=== PATIENT | male | born 1960 | race African-American/Black ===

== ENCOUNTER 2019-11-03 15:32 | Inpatient (IN) ==
[2019-11-03] MEDS ORDERED: Insulin LISPRO 300 UNITS/3 ML VIAL SQ SCH (17:00)
[2019-11-03] MEDS ORDERED: Dextrose Gel 15 GM/37.5 ML TUBE PO PRN ×2 (18:07)
[2019-11-03] MEDS ORDERED: *HR* Dextrose 50 % in Water (Vial) 50 ML VIAL IVP PRN (18:07)
[2019-11-03] MEDS ORDERED: D5% in Water 1,000 ML IVC PRN (18:07)
[2019-11-03] MEDS: Insulin LISPRO 300 UNITS/3 ML VIAL SQ SCH (18:55)
[2019-11-03] MEDS ORDERED: Insulin DETEMIR 100 UNIT/ML per UNIT SQ ONE (21:00)
[2019-11-03] MEDS: carvediloL 6.25 MG TABLET PO SCH (21:58)
[2019-11-03] MEDS: Gabapentin 300 MG CAPSULE PO SCH (21:58)
[2019-11-03] MEDS: Acetaminophen 325 MG TABLET PO PRN (22:53)
[2019-11-04 06:18] LABS: Basophils # 0.1 K/mcL (0.0-0.2); Basophils % 0.7 %; Eosinophils # 0.4 K/mcL (0.0-0.6); Eosinophils % 4.8 %; Hematocrit 37.3 % (37.5-50.1); Hemoglobin 12.5 g/dL (12.9-16.9); Immature Granulocytes % 0.4 % (0-4); Lymphocytes # 2.2 K/mcL (0.6-4.6); Lymphocytes % 29.4 %; Mean Corpuscular HGB Conc 33.5 g/dL (31.6-35.5); Mean Corpuscular Hemoglobin 28.7 pg (28.0-33.3); Mean Corpuscular Volume 85.7 fL (83.0-100.0); Mean Platelet Volume 10.5 fL (9.4-12.4); Monocytes # 0.7 K/mcL (0.0-1.3); Monocytes % 8.9 %; Neutrophils # 4.2 K/mcL (1.6-8.9); Platelet Count 445 K/mcL (140-400); Red Blood Count 4.35 M/mcL (4.19-5.50); Red Cell Distribution Width 11.7 % (11.5-14.5); Segmented Neutrophils % 55.8 %; White Blood Count 7.5 K/mcL (4.3-11.1)
[2019-11-04 06:40] LABS: BUN/Creatinine Ratio 20 (6-26); Blood Urea Nitrogen 29 mg/dL (6-20); Calcium 8.9 mg/dL (8.6-10.3); Carbon Dioxide 28 mEq/L (23-29); Chloride 97 mEq/L (98-107); Glucose 463 mg/dL (70-105); Osmolality,Calculated 302 (280-300); Potassium 4.8 mEq/L (3.5-5.1); Sodium 133 mEq/L (136-145); eGFR For African Americans > 60 (> 60); eGFR For Non-African Americans 51 (> 60)
[2019-11-04] MEDS: lisinopriL 10 MG TABLET PO SCH (08:17)
[2019-11-04] MEDS: carvediloL 6.25 MG TABLET PO SCH ×2 (08:17→16:27)
[2019-11-04] MEDS: Gabapentin 300 MG CAPSULE PO SCH ×3 (08:17→20:51)
[2019-11-04] MEDS: Insulin LISPRO 300 UNITS/3 ML VIAL SQ SCH ×3 (08:21→16:32)
[2019-11-04] MEDS: Insulin DETEMIR 100 UNIT/ML X5UNITS SQ SCH ×2 (08:21→20:52)
[2019-11-04] MEDS ORDERED: Insulin LISPRO 300 UNITS/3 ML VIAL SQ ONE (09:35)
[2019-11-04] MEDS ORDERED: 0.9 % Sodium Chloride 1,000 ML ONE (13:39)
[2019-11-04] MEDS: 0.9 % Sodium Chloride 1,000 ML IVC SCH (16:26)
[2019-11-04] MEDS ORDERED: *HR* Enoxaparin 100 MG/ML SYRINGE SQ SCH (18:00)
[2019-11-04] MEDS: Acetaminophen 325 MG TABLET PO PRN (20:51)
[2019-11-05] MEDS: 0.9 % Sodium Chloride 1,000 ML IVC SCH ×3 (00:07→17:02)
[2019-11-05] MEDS: *HR* Enoxaparin 40 MG/0.4 ML SYRINGE SQ SCH (06:04)
[2019-11-05] MEDS: Acetaminophen 325 MG TABLET PO PRN ×2 (06:04→13:20)
[2019-11-05 06:32] LABS: BUN/Creatinine Ratio 21 (6-26); Blood Urea Nitrogen 27 mg/dL (6-20); Carbon Dioxide 27 mEq/L (23-29); Chloride 101 mEq/L (98-107); Glucose 243 mg/dL (70-105); Osmolality,Calculated 295 (280-300); Potassium 4.3 mEq/L (3.5-5.1); Sodium 136 mEq/L (136-145); eGFR For African Americans > 60 (> 60); eGFR For Non-African Americans 56 (> 60)
[2019-11-05] MEDS: Gabapentin 300 MG CAPSULE PO SCH ×3 (08:29→21:20)
[2019-11-05] MEDS: lisinopriL 10 MG TABLET PO SCH (08:29)
[2019-11-05] MEDS: carvediloL 6.25 MG TABLET PO SCH ×2 (08:29→17:02)
[2019-11-05] MEDS: Insulin LISPRO 300 UNITS/3 ML VIAL SQ SCH ×3 (08:30→17:03)
[2019-11-05] MEDS: Insulin DETEMIR 100 UNIT/ML X5UNITS SQ SCH ×2 (08:30→22:11)
[2019-11-05] MEDS: *HR* HYDROcodone/Acet 5/325 mg TABLET PO PRN ×3 (10:47→22:08)
[2019-11-06 05:34] LABS: BUN/Creatinine Ratio 19 (6-26); Blood Urea Nitrogen 28 mg/dL (6-20); Calcium 9.1 mg/dL (8.6-10.3); Carbon Dioxide 26 mEq/L (23-29); Chloride 100 mEq/L (98-107); Glucose 334 mg/dL (70-105); Osmolality,Calculated 301 (280-300); Potassium 4.4 mEq/L (3.5-5.1); Sodium 136 mEq/L (136-145); eGFR For African Americans > 60 (> 60); eGFR For Non-African Americans 50 (> 60)
[2019-11-06] MEDS: *HR* Enoxaparin 40 MG/0.4 ML SYRINGE SQ SCH (06:52)
[2019-11-06] MEDS: *HR* HYDROcodone/Acet 5/325 mg TABLET PO PRN ×3 (06:53→20:53)
[2019-11-06] MEDS: Insulin LISPRO 300 UNITS/3 ML VIAL SQ SCH ×4 (07:43→16:38)
[2019-11-06] MEDS: Gabapentin 300 MG CAPSULE PO SCH ×3 (09:19→20:53)
[2019-11-06] MEDS: carvediloL 6.25 MG TABLET PO SCH ×2 (09:20→16:18)
[2019-11-06] MEDS: lisinopriL 10 MG TABLET PO SCH (09:20)
[2019-11-06] MEDS: Insulin DETEMIR 100 UNIT/ML X5UNITS SQ SCH ×2 (09:21→20:52)
[2019-11-06] MEDS ORDERED: 0.9 % Sodium Chloride 1,000 ML IV ONE (13:39)
[2019-11-06] MEDS ORDERED: 0.9 % Sodium Chloride 1,000 ML ONE (13:41)
[2019-11-06 15:59] LABS: Amphetamine Screen,Urine Negative ng/mL (Cutoff=1000); Barbiturate Screen,Urine Negative ng/mL (Cutoff=200); Benzodiazepines Screen,Urine Negative ng/mL (Cutoff=200); Cannabinoid Screen,Urine Negative ng/mL (Cutoff = 50); Cocaine Screen,Urine Negative ng/mL (Cutoff= 300); Opiate Screen,Urine Positive ng/mL (Cutoff=300); Phencyclidine Screen,Urine Negative ng/mL (Cutoff=25)
[2019-11-06] MEDS: 0.9 % Sodium Chloride 1,000 ML IVC SCH (16:48)
[2019-11-06] MEDS: tiZANidine 4 MG TABLET PO PRN (20:53)
[2019-11-07] MEDS: 0.9 % Sodium Chloride 1,000 ML IVC SCH ×2 (01:54→09:52)
[2019-11-07] MEDS: Acetaminophen 325 MG TABLET PO PRN (01:58)
[2019-11-07] MEDS: *HR* HYDROcodone/Acet 5/325 mg TABLET PO PRN ×3 (03:17→17:58)
[2019-11-07] MEDS: *HR* Enoxaparin 40 MG/0.4 ML SYRINGE SQ SCH (06:01)
[2019-11-07] MEDS: Gabapentin 300 MG CAPSULE PO SCH ×3 (08:05→20:25)
[2019-11-07] MEDS: lisinopriL 10 MG TABLET PO SCH (08:06)
[2019-11-07] MEDS: carvediloL 6.25 MG TABLET PO SCH ×2 (08:06→16:37)
[2019-11-07] MEDS: Insulin LISPRO 300 UNITS/3 ML VIAL SQ SCH ×3 (08:07→16:38)
[2019-11-07] MEDS: Insulin DETEMIR 100 UNIT/ML X5UNITS SQ SCH ×2 (08:08→20:25)
[2019-11-07 10:45] LABS: BUN/Creatinine Ratio 17 (6-26); Blood Urea Nitrogen 23 mg/dL (6-20); Calcium 8.6 mg/dL (8.6-10.3); Carbon Dioxide 27 mEq/L (23-29); Chloride 99 mEq/L (98-107); Glucose 283 mg/dL (70-105); Osmolality,Calculated 296 (280-300); Sodium 136 mEq/L (136-145); eGFR For African Americans > 60 (> 60); eGFR For Non-African Americans 52 (> 60)
[2019-11-07] MEDS: tiZANidine 4 MG TABLET PO PRN (17:58)
[2019-11-08] MEDS: tiZANidine 4 MG TABLET PO PRN ×3 (00:08→17:09)
[2019-11-08] MEDS: *HR* HYDROcodone/Acet 5/325 mg TABLET PO PRN ×4 (00:08→20:03)
[2019-11-08] MEDS: *HR* Enoxaparin 40 MG/0.4 ML SYRINGE SQ SCH (05:59)
[2019-11-08] MEDS: carvediloL 6.25 MG TABLET PO SCH ×2 (08:37→17:08)
[2019-11-08] MEDS: Gabapentin 300 MG CAPSULE PO SCH ×3 (08:37→20:02)
[2019-11-08] MEDS: lisinopriL 10 MG TABLET PO SCH (08:37)
[2019-11-08] MEDS: Acetaminophen 325 MG TABLET PO PRN ×2 (08:56→17:08)
[2019-11-08] MEDS: Insulin LISPRO 300 UNITS/3 ML VIAL SQ SCH ×3 (08:57→16:53)
[2019-11-08] MEDS: Insulin DETEMIR 100 UNIT/ML X5UNITS SQ SCH ×2 (08:57→20:02)
[2019-11-08] MEDS: Sucralfate 1 GM TABLET PO SCH ×2 (17:08→21:22)
[2019-11-09] MEDS: *HR* HYDROcodone/Acet 5/325 mg TABLET PO PRN ×4 (01:27→23:59)
[2019-11-09] MEDS: *HR* Enoxaparin 40 MG/0.4 ML SYRINGE SQ SCH (06:52)
[2019-11-09] MEDS: carvediloL 6.25 MG TABLET PO SCH ×2 (08:01→16:01)
[2019-11-09] MEDS: Gabapentin 300 MG CAPSULE PO SCH ×3 (08:01→20:56)
[2019-11-09] MEDS: Sucralfate 1 GM TABLET PO SCH ×4 (08:01→20:56)
[2019-11-09] MEDS: lisinopriL 10 MG TABLET PO SCH (08:02)
[2019-11-09] MEDS: Insulin LISPRO 300 UNITS/3 ML VIAL SQ SCH ×3 (08:03→16:02)
[2019-11-09] MEDS: Insulin DETEMIR 100 UNIT/ML X5UNITS SQ SCH ×2 (09:27→20:56)
[2019-11-09] MEDS: Melatonin 3 MG TABLET PO PRN (20:56)
[2019-11-10] MEDS: *HR* Enoxaparin 40 MG/0.4 ML SYRINGE SQ SCH (06:12)
[2019-11-10] MEDS: *HR* HYDROcodone/Acet 5/325 mg TABLET PO PRN ×3 (06:12→18:25)
[2019-11-10] MEDS: tiZANidine 4 MG TABLET PO PRN (06:13)
[2019-11-10] MEDS: lisinopriL 10 MG TABLET PO SCH (08:23)
[2019-11-10] MEDS: carvediloL 6.25 MG TABLET PO SCH ×2 (08:23→16:33)
[2019-11-10] MEDS: Gabapentin 300 MG CAPSULE PO SCH ×3 (08:23→20:00)
[2019-11-10] MEDS: Sucralfate 1 GM TABLET PO SCH ×4 (08:23→20:07)
[2019-11-10] MEDS: Insulin DETEMIR 100 UNIT/ML X5UNITS SQ SCH ×2 (08:32→20:08)
[2019-11-10] MEDS: Insulin LISPRO 300 UNITS/3 ML VIAL SQ SCH ×3 (08:33→16:18)
[2019-11-10] MEDS: Ondansetron ODT 4 MG TAB.RAPDIS SL PRN (13:32)
[2019-11-10] MEDS ORDERED: 0.9 % Sodium Chloride 1,000 ML IVC ONE (18:41)
[2019-11-10] MEDS ORDERED: 0.9 % Sodium Chloride 1,000 ML ONE (18:44)
[2019-11-10] MEDS: Melatonin 3 MG TABLET PO PRN (20:19)
[2019-11-11] MEDS: *HR* Enoxaparin 40 MG/0.4 ML SYRINGE SQ SCH (06:18)
[2019-11-11] MEDS: *HR* HYDROcodone/Acet 5/325 mg TABLET PO PRN ×3 (06:19→21:34)
[2019-11-11] MEDS: lisinopriL 10 MG TABLET PO SCH (08:28)
[2019-11-11] MEDS: Sucralfate 1 GM TABLET PO SCH ×4 (08:29→21:34)
[2019-11-11] MEDS: Gabapentin 300 MG CAPSULE PO SCH ×3 (08:29→21:33)
[2019-11-11] MEDS: carvediloL 6.25 MG TABLET PO SCH ×2 (08:29→16:26)
[2019-11-11] MEDS: Insulin LISPRO 300 UNITS/3 ML VIAL SQ SCH ×3 (08:34→16:28)
[2019-11-11] MEDS: Insulin DETEMIR 100 UNIT/ML X5UNITS SQ SCH ×2 (08:34→21:36)
[2019-11-11] MEDS ORDERED: 0.9 % Sodium Chloride 1,000 ML ONE (16:33)
[2019-11-11] MEDS ORDERED: 0.9 % Sodium Chloride 1,000 ML IVC ONE (16:38)
[2019-11-11 16:58] LABS: Basophils # 0.1 K/mcL (0.0-0.2); Basophils % 0.8 %; Eosinophils # 0.3 K/mcL (0.0-0.6); Eosinophils % 3.7 %; Hematocrit 38.5 % (37.5-50.1); Hemoglobin 12.7 g/dL (12.9-16.9); Immature Granulocytes % 0.2 % (0-4); Lymphocytes # 2.4 K/mcL (0.6-4.6); Lymphocytes % 28.2 %; Mean Corpuscular Hemoglobin 28.6 pg (28.0-33.3); Mean Corpuscular Volume 86.7 fL (83.0-100.0); Mean Platelet Volume 10.3 fL (9.4-12.4); Monocytes # 0.7 K/mcL (0.0-1.3); Monocytes % 8.1 %; Platelet Count 408 K/mcL (140-400); Red Blood Count 4.44 M/mcL (4.19-5.50); White Blood Count 8.6 K/mcL (4.3-11.1)
[2019-11-11] MEDS ORDERED: Hydrocortisone Sodium Succ 100 MG/2 ML VIAL IVP ONE (16:58)
[2019-11-11 17:13] LABS: Calcium 8.8 mg/dL (8.6-10.3)
[2019-11-11] MEDS: tiZANidine 4 MG TABLET PO PRN (21:34)
[2019-11-11] MEDS: Melatonin 3 MG TABLET PO PRN (21:34)
[2019-11-11] MEDS: Hydrocortisone Sodium Succ 100 MG/2 ML VIAL IVP SCH (23:16)
[2019-11-12] MEDS: *HR* Enoxaparin 40 MG/0.4 ML SYRINGE SQ SCH (05:10)
[2019-11-12 07:11] LABS: Thyroid Stimulating Hormone 0.266 mcIU/mL (0.340-5.600)
[2019-11-12] MEDS: lisinopriL 5 MG TABLET PO SCH (08:19)
[2019-11-12] MEDS: Gabapentin 300 MG CAPSULE PO SCH ×3 (08:19→21:20)
[2019-11-12] MEDS: Sucralfate 1 GM TABLET PO SCH ×4 (08:19→21:20)
[2019-11-12] MEDS: Insulin LISPRO 300 UNITS/3 ML VIAL SQ SCH ×3 (08:20→16:52)
[2019-11-12] MEDS: carvediloL 6.25 MG TABLET PO SCH ×2 (08:20→16:46)
[2019-11-12] MEDS: *HR* HYDROcodone/Acet 5/325 mg TABLET PO PRN ×3 (08:35→21:20)
[2019-11-12] MEDS: tiZANidine 4 MG TABLET PO PRN ×3 (08:36→21:20)
[2019-11-12] MEDS: Hydrocortisone Sodium Succ 100 MG/2 ML VIAL IVP SCH ×2 (08:36→15:04)
[2019-11-12 10:12] LABS: Calcium 8.9 mg/dL (8.6-10.3); Potassium 4.4 mEq/L (3.5-5.1)
[2019-11-12] MEDS: Melatonin 3 MG TABLET PO PRN (21:20)
[2019-11-12] MEDS: Insulin DETEMIR 100 UNIT/ML X5UNITS SQ SCH (21:25)
[2019-11-13] MEDS: Hydrocortisone Sodium Succ 100 MG/2 ML VIAL IVP SCH ×4 (00:47→23:37)
[2019-11-13] MEDS: *HR* Enoxaparin 40 MG/0.4 ML SYRINGE SQ SCH (05:57)
[2019-11-13] MEDS: Sucralfate 1 GM TABLET PO SCH ×4 (05:57→20:04)
[2019-11-13] MEDS: tiZANidine 4 MG TABLET PO PRN ×2 (06:02→19:55)
[2019-11-13] MEDS: *HR* HYDROcodone/Acet 5/325 mg TABLET PO PRN ×3 (06:02→19:43)
[2019-11-13] MEDS: carvediloL 6.25 MG TABLET PO SCH ×2 (08:16→16:39)
[2019-11-13] MEDS: Gabapentin 300 MG CAPSULE PO SCH ×3 (08:17→19:43)
[2019-11-13] MEDS: lisinopriL 5 MG TABLET PO SCH (08:17)
[2019-11-13] MEDS: Insulin LISPRO 300 UNITS/3 ML VIAL SQ SCH ×3 (08:26→16:41)
[2019-11-13] MEDS: Melatonin 3 MG TABLET PO PRN (19:43)
[2019-11-13] MEDS: Insulin DETEMIR 100 UNIT/ML X5UNITS SQ SCH (19:56)
[2019-11-14] MEDS: *HR* Enoxaparin 40 MG/0.4 ML SYRINGE SQ SCH (05:52)
[2019-11-14] MEDS: *HR* HYDROcodone/Acet 5/325 mg TABLET PO PRN ×3 (05:54→18:23)
[2019-11-14 06:11] LABS: Basophils % 0.2 %; Hematocrit 39.5 % (37.5-50.1); Hemoglobin 13.5 g/dL (12.9-16.9); Immature Granulocytes % 0.2 % (0-4); Lymphocytes # 1.4 K/mcL (0.6-4.6); Lymphocytes % 14.2 %; Mean Corpuscular HGB Conc 34.2 g/dL (31.6-35.5); Mean Corpuscular Hemoglobin 28.5 pg (28.0-33.3); Mean Corpuscular Volume 83.3 fL (83.0-100.0); Mean Platelet Volume 11.4 fL (9.4-12.4); Monocytes # 0.3 K/mcL (0.0-1.3); Monocytes % 2.9 %; Neutrophils # 7.9 K/mcL (1.6-8.9); Platelet Count 394 K/mcL (140-400); Red Blood Count 4.74 M/mcL (4.19-5.50); Red Cell Distribution Width 11.6 % (11.5-14.5); Segmented Neutrophils % 82.5 %; White Blood Count 9.6 K/mcL (4.3-11.1)
[2019-11-14 06:32] LABS: BUN/Creatinine Ratio 18 (6-26); Blood Urea Nitrogen 22 mg/dL (6-20); Calcium 9.3 mg/dL (8.6-10.3); Carbon Dioxide 29 mEq/L (23-29); Chloride 97 mEq/L (98-107); Glucose 371 mg/dL (70-105); Osmolality,Calculated 298 (280-300); Potassium 3.9 mEq/L (3.5-5.1); Sodium 135 mEq/L (136-145); eGFR For African Americans > 60 (> 60); eGFR For Non-African Americans > 60 (> 60)
[2019-11-14] MEDS: lisinopriL 5 MG TABLET PO SCH (08:07)
[2019-11-14] MEDS: Sucralfate 1 GM TABLET PO SCH ×4 (08:08→20:41)
[2019-11-14] MEDS: Gabapentin 300 MG CAPSULE PO SCH ×3 (08:08→20:41)
[2019-11-14] MEDS: carvediloL 6.25 MG TABLET PO SCH ×2 (08:08→16:32)
[2019-11-14] MEDS: Hydrocortisone Sodium Succ 100 MG/2 ML VIAL IVP SCH ×2 (08:08→16:52)
[2019-11-14] MEDS: Insulin LISPRO 300 UNITS/3 ML VIAL SQ SCH ×3 (08:13→16:32)
[2019-11-14] MEDS: Insulin DETEMIR 100 UNIT/ML X5UNITS SQ SCH (20:41)
[2019-11-15] MEDS: tiZANidine 4 MG TABLET PO PRN (00:23)
[2019-11-15] MEDS: *HR* HYDROcodone/Acet 5/325 mg TABLET PO PRN ×3 (00:23→14:55)
[2019-11-15] MEDS: *HR* Enoxaparin 40 MG/0.4 ML SYRINGE SQ SCH (05:23)
[2019-11-15] MEDS: Ondansetron ODT 4 MG TAB.RAPDIS SL PRN (05:23)
[2019-11-15] MEDS: Acetaminophen 325 MG TABLET PO PRN (05:23)
[2019-11-15] MEDS: Insulin LISPRO 300 UNITS/3 ML VIAL SQ SCH ×3 (08:08→16:45)
[2019-11-15] MEDS: Sucralfate 1 GM TABLET PO SCH ×5 (08:18→22:00)
[2019-11-15] MEDS: lisinopriL 5 MG TABLET PO SCH ×2 (08:18→12:58)
[2019-11-15] MEDS: carvediloL 6.25 MG TABLET PO SCH ×2 (08:18→16:44)
[2019-11-15] MEDS: Gabapentin 300 MG CAPSULE PO SCH ×4 (08:18→20:20)
[2019-11-15] MEDS ORDERED: Ondansetron ODT 4 MG TAB.RAPDIS SL ONE (09:26)
[2019-11-15] MEDS ORDERED: Ketorolac 60 MG/2 ML VIAL IM ONE (11:28)
[2019-11-15] MEDS: polyethylene glycoL 3350 17 GM POWD.PACK PO SCH (12:18)
[2019-11-15] MEDS ORDERED: Bisacodyl 10 MG RECTAL SUPPOSITORY RC PRN (15:42)
[2019-11-15] MEDS ORDERED: Lactulose Oral Soln 20 GM/30 ML UDC PO PRN (15:42)
[2019-11-15] MEDS: Sennosides/Docusate Sodium TABLET PO SCH (20:20)
[2019-11-15] MEDS: Melatonin 3 MG TABLET PO PRN (20:20)
[2019-11-15] MEDS: Insulin DETEMIR 100 UNIT/ML X5UNITS SQ SCH (20:21)
[2019-11-16] MEDS: *HR* Enoxaparin 40 MG/0.4 ML SYRINGE SQ SCH (06:49)
[2019-11-16] MEDS ORDERED: 0.9 % Sodium Chloride 1,000 ML ONE ×2 (07:24→14:58)
[2019-11-16] MEDS ORDERED: 0.9 % Sodium Chloride 500 ML IVC ONE ×3 (07:28→16:00)
[2019-11-16] MEDS: Sucralfate 1 GM TABLET PO SCH ×4 (07:50→22:31)
[2019-11-16] MEDS: Insulin LISPRO 300 UNITS/3 ML VIAL SQ SCH ×4 (07:54→20:20)
[2019-11-16] MEDS: polyethylene glycoL 3350 17 GM POWD.PACK PO SCH (07:55)
[2019-11-16] MEDS: Sennosides/Docusate Sodium TABLET PO SCH ×2 (07:55→20:23)
[2019-11-16] MEDS: Insulin DETEMIR 100 UNIT/ML X5UNITS SQ SCH ×2 (09:51→20:19)
[2019-11-16] MEDS: Gabapentin 300 MG CAPSULE PO SCH ×3 (09:51→20:19)
[2019-11-16 13:05] LABS: Amphetamine Screen,Urine Negative ng/mL (Cutoff=1000); Barbiturate Screen,Urine Negative ng/mL (Cutoff=200); Benzodiazepines Screen,Urine Negative ng/mL (Cutoff=200); Cannabinoid Screen,Urine Negative ng/mL (Cutoff = 50); Cocaine Screen,Urine Negative ng/mL (Cutoff= 300); Opiate Screen,Urine Positive ng/mL (Cutoff=300); Phencyclidine Screen,Urine Negative ng/mL (Cutoff=25)
[2019-11-16 14:59] LABS: Bilirubin,Urine Negative (Negative); Blood,Urine Moderate (Negative); Clarity,Urine Turbid (Clear); Glucose,Urine (UA) 500 mg/dL (Normal); Ketones,Urine Trace mg/dL (Negative); Leukocyte Esterase,Urine Moderate (Negative); Nitrite,Urine Negative (Negative); Protein,Urine 100 mg/dL (Neg-Trace); Specific Gravity,Urine 1.025 (1.010-1.025); Urobilinogen,Urine Normal (Normal)
[2019-11-16 15:05] LABS: Bacteria,Urine Many per hpf (None-Few); Color,Urine Light Yellow (Yellow); RBC,Urine TNTC per hpf (0-3); Squamous Epithelial Cell,Urine Few per hpf (None-Few); WBC,Urine TNTC per hpf (0-3)
[2019-11-16] MEDS: 0.9 % Sodium Chloride 1,000 ML IVC SCH ×2 (15:10→20:17)
[2019-11-16] MEDS: cefTRIAXone 2,000 MG in Water for inj. (sterile) 20 ML IVP SCH (17:06)
[2019-11-16 17:55] LABS: Basophils # 0.1 K/mcL (0.0-0.2); Basophils % 0.4 %; Eosinophils # 0.3 K/mcL (0.0-0.6); Eosinophils % 2.2 %; Hemoglobin 13.2 g/dL (12.9-16.9); Immature Granulocytes % 0.4 % (0-4); Lymphocytes # 2.7 K/mcL (0.6-4.6); Lymphocytes % 18.8 %; Mean Corpuscular Hemoglobin 28.7 pg (28.0-33.3); Mean Platelet Volume 11.3 fL (9.4-12.4); Monocytes # 1.6 K/mcL (0.0-1.3); Neutrophils # 9.7 K/mcL (1.6-8.9); Platelet Count 298 K/mcL (140-400); Red Cell Distribution Width 12.3 % (11.5-14.5); Segmented Neutrophils % 67.2 %; White Blood Count 14.5 K/mcL (4.3-11.1)
[2019-11-16 18:15] LABS: Calcium 8.2 mg/dL (8.6-10.3)
[2019-11-16] MEDS: Acetaminophen 325 MG TABLET PO PRN (22:33)
[2019-11-17] MEDS: 0.9 % Sodium Chloride 1,000 ML IVC SCH (04:20)
[2019-11-17] MEDS: *HR* Enoxaparin 40 MG/0.4 ML SYRINGE SQ SCH (06:41)
[2019-11-17 07:14] LABS: Basophils % 0.2 %; Eosinophils # 0.4 K/mcL (0.0-0.6); Eosinophils % 3.8 %; Hematocrit 35.8 % (37.5-50.1); Hemoglobin 11.9 g/dL (12.9-16.9); Immature Granulocytes % 0.2 % (0-4); Lymphocytes # 2.1 K/mcL (0.6-4.6); Lymphocytes % 22.8 %; Mean Corpuscular HGB Conc 33.2 g/dL (31.6-35.5); Mean Corpuscular Hemoglobin 28.4 pg (28.0-33.3); Mean Corpuscular Volume 85.4 fL (83.0-100.0); Mean Platelet Volume 11.1 fL (9.4-12.4); Monocytes # 1.1 K/mcL (0.0-1.3); Monocytes % 11.2 %; Neutrophils # 5.8 K/mcL (1.6-8.9); Platelet Count 249 K/mcL (140-400); Red Blood Count 4.19 M/mcL (4.19-5.50); Red Cell Distribution Width 11.9 % (11.5-14.5); Segmented Neutrophils % 61.8 %; White Blood Count 9.4 K/mcL (4.3-11.1)
[2019-11-17] MEDS: Insulin LISPRO 300 UNITS/3 ML VIAL SQ SCH ×4 (08:22→22:16)
[2019-11-17] MEDS: Insulin DETEMIR 100 UNIT/ML X5UNITS SQ SCH ×2 (08:22→22:16)
[2019-11-17] MEDS: Gabapentin 300 MG CAPSULE PO SCH ×3 (08:23→22:14)
[2019-11-17] MEDS: Sennosides/Docusate Sodium TABLET PO SCH ×2 (08:25→22:17)
[2019-11-17] MEDS: Sucralfate 1 GM TABLET PO SCH ×4 (08:25→22:14)
[2019-11-17] MEDS: polyethylene glycoL 3350 17 GM POWD.PACK PO SCH (08:31)
[2019-11-17 09:34] LABS: Calcium 8.3 mg/dL (8.6-10.3); Potassium 3.6 mEq/L (3.5-5.1)
[2019-11-17] MEDS: carvediloL 6.25 MG TABLET PO SCH (12:09)
[2019-11-17] MEDS: cefTRIAXone 2,000 MG in Water for inj. (sterile) 20 ML IVP SCH (16:24)
[2019-11-17] MEDS: Melatonin 3 MG TABLET PO PRN (22:14)
[2019-11-18] MEDS: *HR* Enoxaparin 40 MG/0.4 ML SYRINGE SQ SCH (06:34)
[2019-11-18 07:46] LABS: BUN/Creatinine Ratio 11 (6-26); Blood Urea Nitrogen 13 mg/dL (6-20); Calcium 8.8 mg/dL (8.6-10.3); Carbon Dioxide 30 mEq/L (23-29); Chloride 101 mEq/L (98-107); Glucose 216 mg/dL (70-105); Osmolality,Calculated 297 (280-300); Potassium 3.4 mEq/L (3.5-5.1); Sodium 140 mEq/L (136-145); eGFR For African Americans > 60 (> 60); eGFR For Non-African Americans > 60 (> 60)
[2019-11-18] MEDS: Insulin DETEMIR 100 UNIT/ML X5UNITS SQ SCH ×2 (09:13→19:54)
[2019-11-18] MEDS: Gabapentin 300 MG CAPSULE PO SCH ×4 (09:14→20:29)
[2019-11-18] MEDS: carvediloL 6.25 MG TABLET PO SCH ×2 (09:14→16:45)
[2019-11-18] MEDS: polyethylene glycoL 3350 17 GM POWD.PACK PO SCH (09:14)
[2019-11-18] MEDS: Sucralfate 1 GM TABLET PO SCH ×3 (09:14→16:40)
[2019-11-18] MEDS: Sennosides/Docusate Sodium TABLET PO SCH ×3 (09:14→21:56)
[2019-11-18] MEDS: Insulin LISPRO 300 UNITS/3 ML VIAL SQ SCH ×4 (09:23→19:58)
[2019-11-18] MEDS: cefTRIAXone 2,000 MG in Water for inj. (sterile) 20 ML IVP SCH (16:37)
[2019-11-18] MEDS ORDERED: lisinopriL 5 MG TABLET PO ONE (19:26)
[2019-11-18] MEDS ORDERED: carvediloL 6.25 MG TABLET PO ONE (19:26)
[2019-11-18] MEDS: Ondansetron 4 MG/2 ML VIAL IVP PRN (20:26)
[2019-11-19] MEDS: *HR* HYDROcodone/Acet 5/325 mg TABLET PO PRN ×2 (04:51→15:04)
[2019-11-19] MEDS: Ondansetron 4 MG/2 ML VIAL IVP PRN (04:52)
[2019-11-19] MEDS: *HR* Enoxaparin 40 MG/0.4 ML SYRINGE SQ SCH (05:14)
[2019-11-19] MEDS: Gabapentin 300 MG CAPSULE PO SCH ×3 (08:12→20:15)
[2019-11-19] MEDS: Sennosides/Docusate Sodium TABLET PO SCH ×2 (08:12→20:16)
[2019-11-19] MEDS: carvediloL 6.25 MG TABLET PO SCH ×2 (08:13→16:42)
[2019-11-19] MEDS: lisinopriL 5 MG TABLET PO SCH (08:13)
[2019-11-19] MEDS: Insulin LISPRO 300 UNITS/3 ML VIAL SQ SCH ×4 (08:14→20:19)
[2019-11-19] MEDS: polyethylene glycoL 3350 17 GM POWD.PACK PO SCH (08:14)
[2019-11-19] MEDS: Insulin DETEMIR 100 UNIT/ML X5UNITS SQ SCH ×2 (09:47→20:16)
[2019-11-19] MEDS: Ampicillin 2 GM in 0.9 % Sodium Chloride Mini Bag 100 ML IVPB SCH ×3 (11:59→23:53)
[2019-11-19] MEDS: Pantoprazole 40 MG VIAL IVP SCH (16:41)
[2019-11-19] MEDS ORDERED: Ampicillin 2 GM VIAL ONE (23:50)
[2019-11-20] MEDS: *HR* HYDROcodone/Acet 5/325 mg TABLET PO PRN ×4 (00:04→20:39)
[2019-11-20] MEDS: Ampicillin 2 GM in 0.9 % Sodium Chloride Mini Bag 100 ML IVPB SCH ×4 (05:07→23:06)
[2019-11-20] MEDS: Pantoprazole 40 MG VIAL IVP SCH ×2 (05:11→16:29)
[2019-11-20] MEDS: *HR* Enoxaparin 40 MG/0.4 ML SYRINGE SQ SCH (05:14)
[2019-11-20] MEDS: carvediloL 6.25 MG TABLET PO SCH ×2 (09:48→16:31)
[2019-11-20] MEDS: Gabapentin 300 MG CAPSULE PO SCH ×3 (09:49→20:38)
[2019-11-20] MEDS: Insulin LISPRO 300 UNITS/3 ML VIAL SQ SCH ×4 (09:49→20:36)
[2019-11-20] MEDS: lisinopriL 5 MG TABLET PO SCH (09:49)
[2019-11-20] MEDS: polyethylene glycoL 3350 17 GM POWD.PACK PO SCH (09:50)
[2019-11-20] MEDS: Sennosides/Docusate Sodium TABLET PO SCH ×2 (09:50→20:41)
[2019-11-20] MEDS: Insulin DETEMIR 100 UNIT/ML X5UNITS SQ SCH ×2 (09:50→20:38)
[2019-11-21] MEDS: Pantoprazole 40 MG VIAL IVP SCH (05:22)
[2019-11-21] MEDS: Ampicillin 2 GM in 0.9 % Sodium Chloride Mini Bag 100 ML IVPB SCH ×4 (05:23→23:31)
[2019-11-21] MEDS: *HR* Enoxaparin 40 MG/0.4 ML SYRINGE SQ SCH (05:24)
[2019-11-21] MEDS: *HR* HYDROcodone/Acet 5/325 mg TABLET PO PRN ×3 (05:24→20:57)
[2019-11-21] MEDS: Gabapentin 300 MG CAPSULE PO SCH ×3 (08:08→20:01)
[2019-11-21] MEDS: carvediloL 6.25 MG TABLET PO SCH ×2 (08:09→17:16)
[2019-11-21] MEDS: lisinopriL 5 MG TABLET PO SCH (08:09)
[2019-11-21] MEDS: polyethylene glycoL 3350 17 GM POWD.PACK PO SCH (08:09)
[2019-11-21] MEDS: Sennosides/Docusate Sodium TABLET PO SCH ×2 (08:09→20:02)
[2019-11-21] MEDS: Insulin LISPRO 300 UNITS/3 ML VIAL SQ SCH ×4 (08:17→21:01)
[2019-11-21] MEDS: Insulin DETEMIR 100 UNIT/ML X5UNITS SQ SCH ×2 (09:50→20:58)
[2019-11-21] MEDS: Famotidine 20 MG TABLET PO SCH (20:01)
[2019-11-22] MEDS: Ampicillin 2 GM in 0.9 % Sodium Chloride Mini Bag 100 ML IVPB SCH (05:19)
[2019-11-22] MEDS: *HR* Enoxaparin 40 MG/0.4 ML SYRINGE SQ SCH (05:21)
[2019-11-22 07:43] VITALS: BP 170/87
[2019-11-22] MEDS: carvediloL 6.25 MG TABLET PO SCH (08:41)
[2019-11-22] MEDS: *HR* HYDROcodone/Acet 5/325 mg TABLET PO PRN (08:42)
[2019-11-22] MEDS: Gabapentin 300 MG CAPSULE PO SCH (08:42)
[2019-11-22] MEDS: lisinopriL 5 MG TABLET PO SCH (08:43)
[2019-11-22] MEDS: Famotidine 20 MG TABLET PO SCH (08:43)
[2019-11-22] MEDS: Sennosides/Docusate Sodium TABLET PO SCH (08:44)
[2019-11-22] MEDS: polyethylene glycoL 3350 17 GM POWD.PACK PO SCH (08:45)
[2019-11-22] MEDS: Insulin DETEMIR 100 UNIT/ML X5UNITS SQ SCH (08:45)
[2019-11-22] MEDS: Insulin LISPRO 300 UNITS/3 ML VIAL SQ SCH (08:45)
[2019-11-22] MEDS ORDERED: FLU Vac QV 20-21 (6Month+)/PF 0.5 ML SYRINGE IM ONE (10:52)
== END 2019-11-22 13:20 | disposition home health service (06) | DRG 559 ==
LOC: INPPIK 17:49
PROVIDERS: ADMIT Family Medicine; ATTEND Family Medicine

== ENCOUNTER 2019-12-06 17:29 | Inpatient (IN) ==
[2019-12-06] MEDS ORDERED: Dextrose Gel 15 GM/37.5 ML TUBE PO PRN ×2 (21:49)
[2019-12-06] MEDS ORDERED: D5% in Water 1,000 ML IVC PRN (21:49)
[2019-12-06] MEDS ORDERED: *HR* Dextrose 50 % in Water (Vial) 50 ML VIAL IVP PRN (21:49)
[2019-12-06] MEDS ORDERED: Insulin DETEMIR 100 UNIT/ML per UNIT SQ ONE (22:15)
[2019-12-07] MEDS ORDERED: Insulin LISPRO 300 UNITS/3 ML VIAL SQ SCH (08:00)
[2019-12-07] MEDS ORDERED: Insulin DETEMIR 100 UNIT/ML X5UNITS SQ SCH (08:00)
[2019-12-07] MEDS: Insulin LISPRO 300 UNITS/3 ML VIAL SQ SCH ×3 (08:40→16:16)
[2019-12-07] MEDS: Insulin DETEMIR 100 UNIT/ML X5UNITS SQ SCH ×2 (08:41→19:55)
[2019-12-07] MEDS: Gabapentin 300 MG CAPSULE PO SCH ×3 (08:42→19:54)
[2019-12-07] MEDS: carvediloL 6.25 MG TABLET PO SCH ×2 (08:43→16:15)
[2019-12-07] MEDS: Sulfamethoxazole/Trimeth DS 1 EACH TABLET PO SCH ×2 (08:44→16:16)
[2019-12-07] MEDS: lisinopriL 10 MG TABLET PO SCH (08:44)
[2019-12-07] MEDS: Famotidine 20 MG TABLET PO SCH ×2 (08:44→16:15)
[2019-12-08 07:12] LABS: Basophils % 0.4 %; Eosinophils # 0.1 K/mcL (0.0-0.6); Eosinophils % 2.2 %; Hematocrit 32.8 % (37.5-50.1); Hemoglobin 10.9 g/dL (12.9-16.9); Immature Granulocytes % 0.9 % (0-4); Lymphocytes # 1.7 K/mcL (0.6-4.6); Mean Corpuscular HGB Conc 33.2 g/dL (31.6-35.5); Mean Corpuscular Hemoglobin 28.2 pg (28.0-33.3); Monocytes # 0.6 K/mcL (0.0-1.3); Monocytes % 11.3 %; Platelet Count 383 K/mcL (140-400); Red Blood Count 3.86 M/mcL (4.19-5.50); Segmented Neutrophils % 54.2 %; White Blood Count 5.5 K/mcL (4.3-11.1)
[2019-12-08 07:31] LABS: BUN/Creatinine Ratio 7 (6-26); Blood Urea Nitrogen 10 mg/dL (6-20); Calcium 8.8 mg/dL (8.6-10.3); Carbon Dioxide 31 mEq/L (23-29); Chloride 100 mEq/L (98-107); Glucose 218 mg/dL (70-105); Osmolality,Calculated 292 (280-300); Sodium 138 mEq/L (136-145); eGFR For African Americans > 60 (> 60); eGFR For Non-African Americans 55 (> 60)
[2019-12-08] MEDS: Gabapentin 300 MG CAPSULE PO SCH ×3 (08:19→20:12)
[2019-12-08] MEDS: Sulfamethoxazole/Trimeth DS 1 EACH TABLET PO SCH ×2 (08:20→17:19)
[2019-12-08] MEDS: Famotidine 20 MG TABLET PO SCH ×2 (08:20→17:19)
[2019-12-08] MEDS: Insulin LISPRO 300 UNITS/3 ML VIAL SQ SCH ×3 (08:21→17:19)
[2019-12-08] MEDS: carvediloL 6.25 MG TABLET PO SCH ×2 (08:21→17:19)
[2019-12-08] MEDS: lisinopriL 10 MG TABLET PO SCH (08:21)
[2019-12-08] MEDS: Insulin DETEMIR 100 UNIT/ML X5UNITS SQ SCH ×2 (09:53→20:13)
[2019-12-08] MEDS: *HR* HYDROcodone/Acet 5/325 mg TABLET PO PRN (20:12)
[2019-12-09] MEDS: Acetaminophen 325 MG TABLET PO PRN (07:53)
[2019-12-09] MEDS: Famotidine 20 MG TABLET PO SCH ×2 (07:54→16:20)
[2019-12-09] MEDS: lisinopriL 10 MG TABLET PO SCH (07:54)
[2019-12-09] MEDS: carvediloL 6.25 MG TABLET PO SCH ×2 (07:55→16:21)
[2019-12-09] MEDS: Gabapentin 300 MG CAPSULE PO SCH ×3 (07:55→20:39)
[2019-12-09] MEDS: Sulfamethoxazole/Trimeth DS 1 EACH TABLET PO SCH ×2 (07:55→16:19)
[2019-12-09] MEDS: Insulin LISPRO 300 UNITS/3 ML VIAL SQ SCH ×4 (07:57→21:12)
[2019-12-09] MEDS: Insulin DETEMIR 100 UNIT/ML X5UNITS SQ SCH ×2 (08:37→20:39)
[2019-12-09] MEDS ORDERED: Insulin LISPRO 300 UNITS/3 ML VIAL SQ ONE (20:50)
[2019-12-09] MEDS: *HR* HYDROcodone/Acet 5/325 mg TABLET PO PRN (21:22)
[2019-12-10] MEDS: Insulin LISPRO 300 UNITS/3 ML VIAL SQ SCH ×4 (07:53→20:31)
[2019-12-10] MEDS ORDERED: 0.9 % Sodium Chloride 1,000 ML ONE (09:48)
[2019-12-10] MEDS ORDERED: 0.9 % Sodium Chloride 1,000 ML IV ONE (10:02)
[2019-12-10] MEDS: Insulin DETEMIR 100 UNIT/ML X5UNITS SQ SCH ×2 (10:05→20:32)
[2019-12-10] MEDS: Famotidine 20 MG TABLET PO SCH ×2 (10:28→16:20)
[2019-12-10] MEDS: Sulfamethoxazole/Trimeth DS 1 EACH TABLET PO SCH ×2 (10:28→16:20)
[2019-12-10] MEDS: lisinopriL 10 MG TABLET PO SCH (10:28)
[2019-12-10] MEDS: carvediloL 6.25 MG TABLET PO SCH ×2 (10:28→17:38)
[2019-12-10] MEDS: Gabapentin 300 MG CAPSULE PO SCH ×3 (10:28→20:32)
[2019-12-10] MEDS: *HR* HYDROcodone/Acet 5/325 mg TABLET PO PRN ×2 (12:06→20:32)
[2019-12-10] MEDS: Acetaminophen 325 MG TABLET PO PRN (16:20)
[2019-12-11] MEDS: Famotidine 20 MG TABLET PO SCH ×2 (08:22→15:40)
[2019-12-11] MEDS: lisinopriL 10 MG TABLET PO SCH (08:22)
[2019-12-11] MEDS: Sulfamethoxazole/Trimeth DS 1 EACH TABLET PO SCH ×2 (08:22→15:40)
[2019-12-11] MEDS: carvediloL 6.25 MG TABLET PO SCH ×2 (08:23→15:40)
[2019-12-11] MEDS: Gabapentin 300 MG CAPSULE PO SCH ×3 (08:24→20:32)
[2019-12-11] MEDS: *HR* HYDROcodone/Acet 5/325 mg TABLET PO PRN ×2 (08:32→15:53)
[2019-12-11] MEDS: Insulin LISPRO 300 UNITS/3 ML VIAL SQ SCH ×4 (08:33→21:29)
[2019-12-11] MEDS: Insulin DETEMIR 100 UNIT/ML X5UNITS SQ SCH ×2 (09:26→21:30)
[2019-12-11] MEDS ORDERED: 0.9 % Sodium Chloride 500 ML IV ONE (20:09)
[2019-12-12 06:41] LABS: Hematocrit 33.6 % (37.5-50.1); Hemoglobin 10.8 g/dL (12.9-16.9); Mean Corpuscular HGB Conc 32.1 g/dL (31.6-35.5); Mean Corpuscular Hemoglobin 27.9 pg (28.0-33.3); Mean Corpuscular Volume 86.8 fL (83.0-100.0); Mean Platelet Volume 10.7 fL (9.4-12.4); Platelet Count 395 K/mcL (140-400); Red Blood Count 3.87 M/mcL (4.19-5.50); Red Cell Distribution Width 13.3 % (11.5-14.5); White Blood Count 6.2 K/mcL (4.3-11.1)
[2019-12-12 07:04] LABS: Calcium 8.8 mg/dL (8.6-10.3); Magnesium 1.8 mg/dL (1.6-2.6); Potassium 4.6 mEq/L (3.5-5.1)
[2019-12-12] MEDS: Famotidine 20 MG TABLET PO SCH ×2 (07:53→17:17)
[2019-12-12] MEDS: Gabapentin 300 MG CAPSULE PO SCH ×3 (07:53→20:19)
[2019-12-12] MEDS: Sulfamethoxazole/Trimeth DS 1 EACH TABLET PO SCH ×2 (07:53→17:15)
[2019-12-12] MEDS: carvediloL 6.25 MG TABLET PO SCH ×2 (07:54→17:15)
[2019-12-12] MEDS: Insulin DETEMIR 100 UNIT/ML X5UNITS SQ SCH ×2 (07:55→20:38)
[2019-12-12] MEDS: Insulin LISPRO 300 UNITS/3 ML VIAL SQ SCH ×4 (07:55→20:22)
[2019-12-12] MEDS: *HR* HYDROcodone/Acet 5/325 mg TABLET PO PRN (08:13)
[2019-12-13] MEDS ORDERED: Insulin LISPRO 300 UNITS/3 ML VIAL SQ ONE (04:24)
[2019-12-13] MEDS: Gabapentin 300 MG CAPSULE PO SCH ×3 (09:53→19:50)
[2019-12-13] MEDS: Famotidine 20 MG TABLET PO SCH (09:53)
[2019-12-13] MEDS: Sulfamethoxazole/Trimeth DS 1 EACH TABLET PO SCH ×2 (09:54→16:54)
[2019-12-13] MEDS: Insulin LISPRO 300 UNITS/3 ML VIAL SQ SCH ×4 (09:54→19:51)
[2019-12-13] MEDS: carvediloL 6.25 MG TABLET PO SCH ×2 (09:54→16:54)
[2019-12-13] MEDS: Insulin DETEMIR 100 UNIT/ML X5UNITS SQ SCH ×2 (09:55→19:51)
[2019-12-13] MEDS: Ergocalciferol (VIT D2) 50,000 UNIT (1.25MG) CAP PO SCH (09:58)
[2019-12-13] MEDS: *HR* HYDROcodone/Acet 5/325 mg TABLET PO PRN (16:54)
[2019-12-14] MEDS: Sulfamethoxazole/Trimeth DS 1 EACH TABLET PO SCH ×2 (08:30→16:52)
[2019-12-14] MEDS: Gabapentin 300 MG CAPSULE PO SCH ×3 (08:30→20:24)
[2019-12-14] MEDS: carvediloL 6.25 MG TABLET PO SCH ×2 (08:30→16:52)
[2019-12-14] MEDS: Famotidine 20 MG TABLET PO SCH (08:31)
[2019-12-14] MEDS: Insulin LISPRO 300 UNITS/3 ML VIAL SQ SCH ×4 (08:31→20:25)
[2019-12-14] MEDS: Insulin DETEMIR 100 UNIT/ML X5UNITS SQ SCH ×2 (08:31→20:25)
[2019-12-14] MEDS ORDERED: Insulin DETEMIR 100 UNIT/ML X5UNITS SQ SCH (09:45)
[2019-12-14] MEDS ORDERED: Insulin DETEMIR 100 UNIT/ML X5UNITS SQ ONE (10:00)
[2019-12-14] MEDS: *HR* HYDROcodone/Acet 5/325 mg TABLET PO PRN ×2 (14:50→20:59)
[2019-12-15] MEDS: Gabapentin 300 MG CAPSULE PO SCH ×3 (09:11→20:23)
[2019-12-15] MEDS: carvediloL 6.25 MG TABLET PO SCH ×2 (09:12→16:45)
[2019-12-15] MEDS: Insulin DETEMIR 100 UNIT/ML X5UNITS SQ SCH ×2 (09:12→20:24)
[2019-12-15] MEDS: Sulfamethoxazole/Trimeth DS 1 EACH TABLET PO SCH ×2 (09:12→16:46)
[2019-12-15] MEDS: Famotidine 20 MG TABLET PO SCH (09:12)
[2019-12-15] MEDS: Insulin LISPRO 300 UNITS/3 ML VIAL SQ SCH ×4 (09:13→20:24)
[2019-12-15] MEDS: *HR* HYDROcodone/Acet 5/325 mg TABLET PO PRN (16:46)
[2019-12-16] MEDS: Famotidine 20 MG TABLET PO SCH (08:37)
[2019-12-16] MEDS: *HR* HYDROcodone/Acet 5/325 mg TABLET PO PRN ×3 (08:38→21:27)
[2019-12-16] MEDS: Gabapentin 300 MG CAPSULE PO SCH ×3 (08:38→20:24)
[2019-12-16] MEDS: carvediloL 6.25 MG TABLET PO SCH ×2 (08:39→15:20)
[2019-12-16] MEDS: Sulfamethoxazole/Trimeth DS 1 EACH TABLET PO SCH (08:39)
[2019-12-16] MEDS: Insulin DETEMIR 100 UNIT/ML X5UNITS SQ SCH ×2 (08:39→20:24)
[2019-12-16] MEDS: Insulin LISPRO 300 UNITS/3 ML VIAL SQ SCH ×4 (08:40→20:14)
[2019-12-17] MEDS: Insulin LISPRO 300 UNITS/3 ML VIAL SQ SCH ×4 (08:23→21:11)
[2019-12-17] MEDS: Gabapentin 300 MG CAPSULE PO SCH ×3 (08:24→21:10)
[2019-12-17] MEDS: Famotidine 20 MG TABLET PO SCH (08:25)
[2019-12-17] MEDS: carvediloL 6.25 MG TABLET PO SCH ×2 (08:25→16:06)
[2019-12-17] MEDS: Insulin DETEMIR 100 UNIT/ML X5UNITS SQ SCH ×2 (09:05→21:11)
[2019-12-17] MEDS: *HR* HYDROcodone/Acet 5/325 mg TABLET PO PRN ×2 (11:31→21:09)
[2019-12-18] MEDS: Insulin LISPRO 300 UNITS/3 ML VIAL SQ SCH ×4 (09:06→22:09)
[2019-12-18] MEDS: Insulin DETEMIR 100 UNIT/ML X5UNITS SQ SCH ×2 (09:32→21:58)
[2019-12-18] MEDS: Famotidine 20 MG TABLET PO SCH (09:33)
[2019-12-18] MEDS: Gabapentin 300 MG CAPSULE PO SCH ×3 (09:33→21:57)
[2019-12-18] MEDS: carvediloL 6.25 MG TABLET PO SCH ×2 (09:33→16:28)
[2019-12-18] MEDS: *HR* HYDROcodone/Acet 5/325 mg TABLET PO PRN ×2 (09:34→21:57)
[2019-12-19] MEDS: *HR* HYDROcodone/Acet 5/325 mg TABLET PO PRN ×2 (08:19→17:15)
[2019-12-19] MEDS: Famotidine 20 MG TABLET PO SCH (08:19)
[2019-12-19] MEDS: Insulin DETEMIR 100 UNIT/ML X5UNITS SQ SCH ×2 (08:20→22:03)
[2019-12-19] MEDS: Gabapentin 300 MG CAPSULE PO SCH ×3 (08:20→21:59)
[2019-12-19] MEDS: Insulin LISPRO 300 UNITS/3 ML VIAL SQ SCH ×4 (08:20→22:10)
[2019-12-19] MEDS: carvediloL 6.25 MG TABLET PO SCH ×2 (08:20→17:10)
[2019-12-20] MEDS: *HR* HYDROcodone/Acet 5/325 mg TABLET PO PRN ×2 (00:18→08:37)
[2019-12-20] MEDS: Insulin LISPRO 300 UNITS/3 ML VIAL SQ SCH (07:54)
[2019-12-20] MEDS: carvediloL 6.25 MG TABLET PO SCH (08:31)
[2019-12-20] MEDS: Famotidine 20 MG TABLET PO SCH (08:31)
[2019-12-20] MEDS: Ergocalciferol (VIT D2) 50,000 UNIT (1.25MG) CAP PO SCH (08:31)
[2019-12-20] MEDS: Gabapentin 300 MG CAPSULE PO SCH (08:31)
[2019-12-20] MEDS: Insulin DETEMIR 100 UNIT/ML X5UNITS SQ SCH (08:34)
[2019-12-20 08:35] VITALS: BP 112/72
== END 2019-12-20 12:25 | disposition home health service (06) | DRG 945 ==
LOC: INPPIK 20:48
PROVIDERS: ADMIT Family Medicine; ATTEND Family Medicine